=== PATIENT | female | born 1930 | race Caucasian/White ===

== ENCOUNTER 2017-03-03 15:14 | Inpatient (IN) | payer MEDICARE, OTHER ==
[~2017-03-03] VITALS: Ht 162.6 cm; Wt 75.9 kg
[2017-03-03 17:00] VITALS: BP 148/63
[2017-03-03] MEDS ORDERED: SIMETHICONE 80 MG TAB.CHEW PO PRN (18:30)
[2017-03-03] MEDS ORDERED: oxyCODONE/APAP 5/325 1 TAB TABLET PO PRN (18:30)
[2017-03-03] MEDS ORDERED: MAGNESIUM HYDROXIDE 2,400 MG/30 ML ORAL.SUSP. PO PRN (18:30)
[2017-03-03] MEDS ORDERED: LOPERAMIDE 2 MG CAPSULE PO PRN ×2 (18:30)
[2017-03-03] MEDS: IV NORMAL SALINE 1000ML BAG 1,000 ML IV SCH ×2 (18:30→21:07)
[2017-03-03 19:00] VITALS: BP 176/82
[2017-03-03] MEDS: GABAPENTIN 100 MG CAPSULE. PO SCH (21:07)
[2017-03-03] MEDS: OXYBUTYNIN CHLORIDE 5 MG TABLET PO SCH (21:07)
[2017-03-03] MEDS: MEMANTINE 5 MG TABLET. PO SCH (21:08)
[2017-03-03] MEDS: DICLOFENAC SODIUM 1% TOPICAL GEL 100GM TUBE. TP SCH (21:09)
[2017-03-03] MEDS: CLOBETASOL EMOLLIENT 0.05% TOPICAL CREAM 15GM TUBE. TP SCH (21:09)
[2017-03-03 23:00] VITALS: BP 158/78
[2017-03-04 03:00] VITALS: BP 131/74
[2017-03-04] MEDS ORDERED: oxyCODONE/APAP 5/325 1 TAB TABLET PO PRN (04:00)
[2017-03-04] MEDS: IV NORMAL SALINE 1000ML BAG 1,000 ML IV SCH ×2 (04:47→14:30)
[2017-03-04] MEDS: oxyCODONE/APAP 10/325 1 TAB TABLET PO PRN ×3 (04:48→23:11)
[2017-03-04 06:53] LABS: BASO # 0.1 x10^3/uL (0.0-0.2); BASO % 1 % (0-3); EOS % 6 % (0-3); HEMATOCRIT 33.4 % (36.0-47.0); HEMOGLOBIN 10.9 g/dL (12.0-15.5); LYMPH # 1.7 x10^3/uL (1.0-4.8); LYMPH % 26 % (24-48); MEAN CORPUSCULAR HEMOGLOBIN 30 pg (25-35); MEAN CORPUSCULAR HGB CONC 33 g/dL (31-37); MEAN CORPUSCULAR VOLUME 90 fL (79-100); MONO % 9 % (0-9); NEUT % 59 % (31-73); PLATELET COUNT 223 x10^3/uL (140-400); RED CELL DISTRIBUTION WIDTH 13.8 % (11.5-14.5); WHITE BLOOD COUNT 6.5 x10^3/uL (4.0-11.0)
[2017-03-04 07:00] VITALS: BP 145/68
[2017-03-04 07:05] LABS: ALBUMIN 2.8 g/dL (3.4-5.0); ALBUMIN/GLOBULIN RATIO 0.9 (1.0-1.7); CALCIUM 8.8 mg/dL (8.5-10.1); CREATININE 1.2 mg/dL (0.6-1.0); GFR 42.6; POTASSIUM 4.5 mmol/L (3.5-5.1); TOTAL BILIRUBIN 0.3 mg/dL (0.2-1.0)
[2017-03-04] MEDS: OXYBUTYNIN CHLORIDE 5 MG TABLET PO SCH ×2 (09:49→21:00)
[2017-03-04] MEDS: GABAPENTIN 100 MG CAPSULE. PO SCH ×2 (09:49→21:00)
[2017-03-04] MEDS: LISINOPRIL 10 MG TABLET PO SCH (09:50)
[2017-03-04] MEDS: TRIAMCINOLONE ACETONIDE 0.1% TOPICAL CREAM 15GM TUBE. TP SCH (09:51)
[2017-03-04] MEDS: CLOBETASOL EMOLLIENT 0.05% TOPICAL CREAM 15GM TUBE. TP SCH ×2 (09:51→21:00)
[2017-03-04] MEDS: MEMANTINE 5 MG TABLET. PO SCH ×2 (09:54→21:00)
[2017-03-04] MEDS: DICLOFENAC SODIUM 1% TOPICAL GEL 100GM TUBE. TP SCH ×2 (09:56→21:00)
[2017-03-04 10:49] VITALS: BP 140/66
--- NOTE | 2017-03-04 11:52 | RAD ---
Indication MRI clearance A single view of the chest was obtained and is compared to a study 07/08/2010. The heart and pulmonary vessels are unremarkable. There is no acute parenchymal infiltrate. 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 No battery device is seen in the chest IMPRESSION: No acute finding in the chest. No battery device is seen in the chest
--- NOTE | 2017-03-04 12:31 | RAD ---
Indication MRI clearance. A single view of the abdomen was obtained. Kyphoplasty changes are noted at L2. The abdominal gas pattern is normal. No battery device is seen. IMPRESSION: No battery device seen in the abdomen
--- NOTE | 2017-03-04 12:35 | PDOC1 ---
History and Physical Date of Admission Date of Admission 03/03/2017 Identification/Chief Complaint Chief Complaint right hip pain and difficulty walking Problems: (1) Abnormal radionuclide bone scan (2) Inability to walk (3) Pain, joint, hip, right Source Source: Caregiver, Patient History of Present Illness History of Present Illness A week ago the patient who is normally ambulatory developed pain in his right hip and was unable to walk She was evaluated at ER of [facility] and Xray of her right hio was unremarkable CT Scan of the lumbosacral spine showed compression fracture treated with vertebroplasty CT Scan of the pelvis and both hip jopints were unremarkable Bone scan showed abnormal uptake at the proximal end of the right femur and as recommend by the radiologist she was transferred to [facility] for an MRI and to consult the orthopedic surgeon Past Medical History Cardiovascular: HTN Pulmonary: No pertinent hx Renal/: Chronic renal insuff Social History Smoke: No ALCOHOL: none Current Problem List Problem List Right hip pain Difficulty walking Current Medications Current Medications Current Medications Medications (Trade) Dose Ordered Sig/Marilou Start Time Stop Time Status Last Admin Dose Admin Clobetasol Propionate (Temovate) 1 rosibel BID 03/03/17 21:00 03/04/17 09:51 1 ROSIBEL Diclofenac Sodium (Voltaren) 1 rosibel BID 03/03/17 21:00 03/04/17 09:56 1 ROSIBEL Gabapentin (Neurontin) 100 mg BID 03/03/17 21:00 03/04/17 09:49 100 MG Lidocaine (Lidoderm) 1 patch PRN DAILY PRN 03/03/17 18:30 Lisinopril (Prinivil) 10 mg DAILY 03/04/17 09:00 03/04/17 09:50 10 MG Loperamide HCl (Imodium) 4 mg PRN DAILY PRN 03/03/17 18:30 Magnesium Hydroxide (Milk Of Magnesia) 2,400 mg PRN Q72HRS PRN 03/03/17 18:30 Memantine (Namenda) 2.5 mg BID 03/03/17 21:00 03/04/17 09:54 2.5 MG Oxybutynin Chloride (Ditropan) 5 mg BID 03/03/17 21:00 03/04/17 09:49 5 MG Oxycodone/ Acetaminophen (Percocet 10/325) 1 tab PRN Q4HRS PRN 03/04/17 01:15 03/04/17 09:51 1 TAB Oxycodone/ Acetaminophen (Percocet 5/325) 1 tab PRN Q4HRS PRN 03/04/17 04:00 Simethicone (Gas-X) 80 mg PRN Q4HRS PRN 03/03/17 18:30 Sodium Chloride 1,000 ml @ 100 mls/hr Q10H 03/03/17 18:30 03/04/17 04:47 100 MLS/HR Triamcinolone Acetonide (Kenalog) 1 rosibel DAILY 03/04/17 09:00 03/04/17 09:51 1 ROSIBEL Allergies Allergies Allergies Coded Allergies Type Severity Reaction Last Updated Verified Penicillins Allergy Intermediate rash, itching, hives 03/03/17 Yes ROS Review of System CONSTITUTIONAL: No fever or chills EYES: No recent changes SKIN: No rash or itching CARDIOVASCULAR: No chest pain, syncope, palpitations, or edema RESPIRATORY: No SOB or cough GASTROINTESTINAL: No nausea, vomiting or abdominal pain NEUROLOGICAL: No headaches or weakness ENDOCRINE: No cold or heat intolerance GENITOURINARY: No urgency or frequency of urination MUSCULOSKELETAL: No back pain or joint pain LYMPHATICS: No enlarged lymph nodes PSYCHIATRIC: No anxiety or depression Physical Exam Physical Exam GEN.: No apparent distress. Alert and oriented. HEENT: Head is normocephalic, atraumatic NECK: Supple. LUNGS: Clear to auscultation. HEART: RRR, S1, S2 present. Peripheral pulses intact ABDOMEN: Soft, nontender. Positive bowel sounds. EXTREMITIES: Without any cyanosis. NEUROLOGIC: Normal speech, normal tone PSYCHIATRIC: Normal affect, normal mood. SKIN: No ulcerations Vitals Vitals Vital Signs Date Time Temp Pulse Resp B/P (MAP) Pulse Ox O2 Delivery O2 Flow Rate FiO2 03/04/17 10:50 92 Room Air 03/04/17 10:49 98.1 74 18 140/66 (90) 98.1 Labs Labs Laboratory Tests Test 03/04/17 06:10 White Blood Count 6.5 x10^3/uL (4.0-11.0) Red Blood Count 3.70 x10^6/uL (3.50-5.40) Hemoglobin 10.9 g/dL (12.0-15.5) Hematocrit 33.4 % (36.0-47.0) Mean Corpuscular Volume 90 fL (79-100) Mean Corpuscular Hemoglobin 30 pg (25-35) Mean Corpuscular Hemoglobin Concent 33 g/dL (31-37) Red Cell Distribution Width 13.8 % (11.5-14.5) Platelet Count 223 x10^3/uL (140-400) Neutrophils (%) (Auto) 59 % (31-73) Lymphocytes (%) (Auto) 26 % (24-48) Monocytes (%) (Auto) 9 % (0-9) Eosinophils (%) (Auto) 6 % (0-3) Basophils (%) (Auto) 1 % (0-3) Neutrophils # (Auto) 3.8 x10^3uL (1.8-7.7) Lymphocytes # (Auto) 1.7 x10^3/uL (1.0-4.8) Monocytes # (Auto) 0.6 x10^3/uL (0.0-1.1) Eosinophils # (Auto) 0.4 x10^3/uL (0.0-0.7) Basophils # (Auto) 0.1 x10^3/uL (0.0-0.2) Sodium Level 141 mmol/L (136-145) Potassium Level 4.5 mmol/L (3.5-5.1) Chloride Level 108 mmol/L (98-107) Carbon Dioxide Level 27 mmol/L (21-32) Anion Gap 6 (6-14) Blood Urea Nitrogen 14 mg/dL (7-20) Creatinine 1.2 mg/dL (0.6-1.0) Estimated GFR (Cockcroft-Gault) 42.6 BUN/Creatinine Ratio 12 (6-20) Glucose Level 87 mg/dL (70-99) Calcium Level 8.8 mg/dL (8.5-10.1) Total Bilirubin 0.3 mg/dL (0.2-1.0) Aspartate Amino Transf (AST/SGOT) 13 U/L (15-37) Alanine Aminotransferase (ALT/SGPT) 8 U/L (14-59) Alkaline Phosphatase 64 U/L (46-116) Total Protein 6.0 g/dL (6.4-8.2) Albumin 2.8 g/dL (3.4-5.0) Albumin/Globulin Ratio 0.9 (1.0-1.7) Laboratory Tests Test 03/04/17 06:10 White Blood Count 6.5 x10^3/uL (4.0-11.0) Red Blood Count 3.70 x10^6/uL (3.50-5.40) Hemoglobin 10.9 g/dL (12.0-15.5) Hematocrit 33.4 % (36.0-47.0) Mean Corpuscular Volume 90 fL (79-100) Mean Corpuscular Hemoglobin 30 pg (25-35) Mean Corpuscular Hemoglobin Concent 33 g/dL (31-37) Red Cell Distribution Width 13.8 % (11.5-14.5) Platelet Count 223 x10^3/uL (140-400) Neutrophils (%) (Auto) 59 % (31-73) Lymphocytes (%) (Auto) 26 % (24-48) Monocytes (%) (Auto) 9 % (0-9) Eosinophils (%) (Auto) 6 % (0-3) Basophils (%) (Auto) 1 % (0-3) Neutrophils # (Auto) 3.8 x10^3uL (1.8-7.7) Lymphocytes # (Auto) 1.7 x10^3/uL (1.0-4.8) Monocytes # (Auto) 0.6 x10^3/uL (0.0-1.1) Eosinophils # (Auto) 0.4 x10^3/uL (0.0-0.7) Basophils # (Auto) 0.1 x10^3/uL (0.0-0.2) Sodium Level 141 mmol/L (136-145) Potassium Level 4.5 mmol/L (3.5-5.1) Chloride Level 108 mmol/L (98-107) Carbon Dioxide Level 27 mmol/L (21-32) Anion Gap 6 (6-14) Blood Urea Nitrogen 14 mg/dL (7-20) Creatinine 1.2 mg/dL (0.6-1.0) Estimated GFR (Cockcroft-Gault) 42.6 BUN/Creatinine Ratio 12 (6-20) Glucose Level 87 mg/dL (70-99) Calcium Level 8.8 mg/dL (8.5-10.1) Total Bilirubin 0.3 mg/dL (0.2-1.0) Aspartate Amino Transf (AST/SGOT) 13 U/L (15-37) Alanine Aminotransferase (ALT/SGPT) 8 U/L (14-59) Alkaline Phosphatase 64 U/L (46-116) Total Protein 6.0 g/dL (6.4-8.2) Albumin 2.8 g/dL (3.4-5.0) Albumin/Globulin Ratio 0.9 (1.0-1.7) Images Images pending VTE Prophylaxis Ordered VTE Prophylaxis Devices: Yes VTE Pharmacological Prophylaxi: Yes (sequential compression devices) NORRIS ODOM MD Mar 04, 2017 12:35
--- NOTE | 2017-03-04 14:18 | RAD ---
EXAM: MRI right hip without contrast. HISTORY: Right hip pain after a fall. TECHNIQUE: MRI of the right hip was performed without intravenous contrast. COMPARISON: None. FINDINGS: There is nondisplaced intratrochanteric fracture of the right femur. There is mild surrounding soft tissue edema without associated hematoma. There is mild joint space narrowing at the right hip with tiny osteophytes along the right femoral head indicating mild osteoarthritis. There is degeneration of the superior acetabular labrum. There is a small right hip effusion. Greater trochanteric bursitis is mild. The iliopsoas tendon and hamstring origin are intact. There is mild presacral edema without a focal collection. IMPRESSION: 1. Nondisplaced intratrochanteric fracture of the right femur. 2. Mild right hip osteoarthritis. Small right hip effusion. These findings were called to Wendi by Arash Reyes on 03/04/2017 2:12 PM. Electronically signed by: Radha Reyes MD (03/04/2017 2:15 PM) [id number]
[2017-03-04 14:51] VITALS: BP 150/74
[2017-03-04 19:00] VITALS: BP 138/77
[2017-03-04 23:00] VITALS: BP 137/66
[2017-03-05] MEDS: IV NORMAL SALINE 1000ML BAG 1,000 ML IV SCH ×2 (02:44→10:30)
[2017-03-05 02:47] VITALS: BP 134/56
--- NOTE | 2017-03-05 05:27 | ACF ---
Admission Forms Criteria MUSCULOSKELETAL DISEASE GRG Clinical Indications for Admission to Inpatient Care (Place 'X' for any and all applicable criteria): Hospital admission is needed for appropriate care of the patient because of 1 or more of the following: [ ]I. Fracture, dislocation, or other musculoskeletal injury requiring inpatient care(medical) as indicated by 1 or more of the following(4)(5)(6)(7) [ ]a) Vertebral fracture requiring observation for instability or neurologic compromise (8) [ ]b) Compartment syndrome (proven or cannot be ruled out during observation level of care) (9) [ ]c) Limb-threatening injury [ ]d) Major injury requiring inpatient stabilization such as traction initiation or external fixation before internal fixation or closure of complex or open fracture [ ]e) Major injury requiring inpatient treatment after emergency or observation level care (as appropriate) [ ]f) Severe pain requiring acute inpatient management [ ]g) Injury with suspicion of abuse or neglect (eg., child, dependent elderly) [ ]II. Newly diagnosed or suspected bone, joint, or orthopedic device infection (e.g., osteomyelitis, septic arthritis) needing 1 or more of the following(1)(2)(3) [ ]a) IV antibiotics that cannot be initiated in other than inpatient setting (e.g., patient too unstable or home infusion not available) [ ]b) Device removal or replacement [ ]c) Bone or soft tissue debridement [ ]d) Joint drainage (drain placement or repetitive aspirations) [ ]III. Severe rheumatologic disease (e.g., systemic lupus erythematosus, rheumatoid arthritis) with complications or comorbidities (Also use Optimal Recovery Care Criteria or General Recovery Criteria as appropriate on the basis of predominant condition), including 1 or more of the following( 10)(11)(12)(13) [ ]a) Severe infection (e.g., [employer] infection, sepsis) (14) [ ]b) Respiratory complications, including 1 or more of the following : [ ]i) Pleural effusion with respiratory compromise [ ]ii) Pulmonary hypertension with congestive failure [ ]iii) Respiratory failure [ ]iv) Pulmonary hemorrhage (15) [ ]c) Hematologic disease, including 1 or more of the following: [ ]i) Coagulopathy with bleeding [ ]ii) Thrombosis with hypercoagulable state [ ]iii) Thrombotic thrombocytopenic purpura [ ]d) Cerebritis with seizures, psychosis, or other severe abnormalities [ ]e) Vertebral destruction with monitoring needed for cervical myelopathy& possible respiratory compromise [ ]f) Exacerbation that requires inpatient treatment (e.g., intravenous immunosuppression) (16) [ ]g) Acute renal failure [ ]h) Cerebritis with seizures, psychosis, Altered mental status, or other neurologic abnormalities [ ]i) Pericardial effusion with tamponade [ ]j) Vertebral destruction, with monitoring needed for cervical myelopathy and possible respiratory compromise [ ]IV. Severe vasculitis with complications or comorbidities (Also use Optimal Recovery Care Criteria General Recovery Criteria as appropriate on the basis of predominant condition), including 1 or more of the following(11)(12)(17)(18)(19)(20) [ ]a) Exacerbation that requires inpatient treatment (e.g., intravenous immunosuppression) (19)(21) [ ]b) Pulmonary hemorrhage (15) [ ]c) [employer] vasculitis with seizures, psychosis, Altered mental status that is severe or persistent, or other severe abnormalities (22) [ ]d) Cerebral infarction [ ]e) Gastrointestinal ischemia [ ]f) Gangrene or threatened amputation [ ]g) Renal failure (16) [ ]h) Other significant complications of vasculitis ( eg., tissue or organ ischemia, organ dysfunction ) [ ]V. Severe myopathy as indicated by 1 or more of the following (28)(29) [ ]a) New onset of airway compromise or inability to swallow [ ]b) Respiratory deterioration with observation needed for impending respiratory failure [ ]c) Exacerbation that requires inpatient treatment (e.g., intravenous immunosuppression) [ ]. Severe crystal gout (arthropathy) indicated by 1 or more of the following (23)(24) [ ]a) Severe pain requiring acute inpatient management [ ]b) Exacerbation that requires inpatient treatment (e.g., intravenous treatment) [ ]VII.Rhabdomyolysis and 1 or more of the following (25)(26)(27) [ ]a) Acute renal failure [ ]b) Need for intravenous hydration after emergency or observation level care (as appropriate) [ ]c) Inability to maintain oral hydration [ ]d) Change in mental status [ ]e) Electrolyte abnormality that remains after emergency or observation level care (as appropriate) [ ]VIII Post amputation complication, as indicated by ANY ONE of the following [ ]a) Infection [ ]b) Dehiscence [ ]c) Myodesis failure [X]IX. Severe pain requiring acute inpatient management due to musculoskeletal condition [ ]X. Musculoskeletal Disease and ALL of the following: [ ]a) Symptom or finding for which emergency and observation care have failed or are not considered appropriate (Use General Criteria: Observation Care as appropriate) [ ]b) Presence of ANY ONE of the following [ ]i) A General Admission Criteria [ ]ii) A Pediatric General Admission Criteria The original [facility] emoqu[facility] content created by [facility] has been revised. The portions of the content which have been revised are identified through the use of italic text or in bold, and [facility] has neither reviewed nor approved the modified material. All other unmodified content is copyright [facility]. Please see references footnoted in the original [facility] edition 2016 Admission Criteria Met?: Yes MILAN MAGUIRE Mar 05, 2017 05:27
[2017-03-05 07:00] VITALS: BP 145/64
[2017-03-05] MEDS: OXYBUTYNIN CHLORIDE 5 MG TABLET PO SCH ×2 (08:08→21:28)
[2017-03-05] MEDS: GABAPENTIN 100 MG CAPSULE. PO SCH ×2 (08:08→21:29)
[2017-03-05] MEDS: MEMANTINE 5 MG TABLET. PO SCH ×2 (08:08→21:29)
[2017-03-05] MEDS: CLOBETASOL EMOLLIENT 0.05% TOPICAL CREAM 15GM TUBE. TP SCH ×3 (08:09→21:29)
[2017-03-05] MEDS: LISINOPRIL 10 MG TABLET PO SCH (08:09)
[2017-03-05] MEDS: TRIAMCINOLONE ACETONIDE 0.1% TOPICAL CREAM 15GM TUBE. TP SCH (08:09)
[2017-03-05] MEDS: DICLOFENAC SODIUM 1% TOPICAL GEL 100GM TUBE. TP SCH ×2 (08:10→21:30)
[2017-03-05] MEDS: oxyCODONE/APAP 10/325 1 TAB TABLET PO PRN ×2 (08:11→16:45)
[2017-03-05 11:00] VITALS: BP 132/59
[2017-03-05 15:00] VITALS: BP 143/59
[2017-03-05] MEDS: LIDOCAINE (700MG/PATCH) PATCH. TD PRN (16:46)
[2017-03-05] MEDS ORDERED: METHYL SALICYLATE/MENTHOL TOPICAL OINTMENT 29GM TUBE. TP PRN (18:00)
[2017-03-05 19:16] VITALS: BP 120/69
[2017-03-05 23:12] VITALS: BP 145/70
[2017-03-06] VITALS (13 sets, daily range): BP systolic 95–152; BP diastolic 49–82
[2017-03-06] MEDS: oxyCODONE/APAP 10/325 1 TAB TABLET PO PRN (00:12)
--- NOTE | 2017-03-06 00:29 | PN ---
DATE: 03/05/2017 SUBJECTIVE: The patient is resting, slightly propped up, eating her lunch comfortably in no apparent distress. She has had an MRI done yesterday, which confirmed our suspicion that the patient has fractured her femur. In fact, the MRI showed a nondisplaced intertrochanteric fracture of the right femur and mild right hip osteoarthritis and small right hip effusion. She was evaluated by the orthopedic surgeon and initially there were plans for her to have surgery today; however, the surgery was postponed for tomorrow morning 7:00. OBJECTIVE: GENERAL: When I saw her this afternoon, she looked well and was clearly in no apparent respiratory distress, slightly pale. No jaundice, cyanosis or thyromegaly. No jugular venous distention. No lower limb edema. VITAL SIGNS: Her heart rate was 64, blood pressure 132/59, temperature was 98.7, respiratory rate was 18 and oxygen saturation was 95%. HEAD, EYES, EARS, NOSE AND THROAT: Showed normocephalic, atraumatic. NECK: Supple. HEART: Showed normal first and second sounds. No gallop, rub or murmur. CHEST: Clear to auscultation. No crepitation or rhonchi. ABDOMEN: Distended, soft, nontender. NEUROLOGIC: She was awake, alert, responding appropriately. Cranial nerves intact. She moves extremities without difficulty. She is mostly bed bound because of pain in her right hip joint. Her intake over the last 24 hours was 1700, no output was recorded. LABORATORY DATA: Her most recent lab work showed a serum sodium of 141, potassium 4.5, chloride 108, bicarbonate 27, anion gap of 6, BUN 14, creatinine 1.2 and her white cell count was 6500, hemoglobin 11, hematocrit 33, MCV 90 and platelet count 323,000. ASSESSMENT: Fall with a right intertrochanteric fracture, scheduled for surgical treatment tomorrow. My plan is to discontinue the IV fluid, repeat her labs tomorrow morning and continue obviously with pain management and deep venous thrombosis prophylaxis. NORRIS ODOM MD DR: RANDOLPH/beatriz JOB#: [id number] / [id number]
[2017-03-06 04:24] LABS: BASO # 0.1 x10^3/uL (0.0-0.2); BASO % 1 % (0-3); EOS % 8 % (0-3); HEMOGLOBIN 10.5 g/dL (12.0-15.5); LYMPH # 1.9 x10^3/uL (1.0-4.8); LYMPH % 32 % (24-48); MEAN CORPUSCULAR HEMOGLOBIN 30 pg (25-35); MEAN CORPUSCULAR HGB CONC 33 g/dL (31-37); MEAN CORPUSCULAR VOLUME 91 fL (79-100); MONO % 8 % (0-9); NEUT % 51 % (31-73); PLATELET COUNT 221 x10^3/uL (140-400); RED BLOOD COUNT 3.52 x10^6/uL (3.50-5.40); RED CELL DISTRIBUTION WIDTH 14.2 % (11.5-14.5)
[2017-03-06 04:50] LABS: ALBUMIN 2.7 g/dL (3.4-5.0); ALBUMIN/GLOBULIN RATIO 0.8 (1.0-1.7); CALCIUM 8.7 mg/dL (8.5-10.1); CREATININE 1.3 mg/dL (0.6-1.0); GFR 38.8; POTASSIUM 4.2 mmol/L (3.5-5.1); TOTAL BILIRUBIN 0.2 mg/dL (0.2-1.0); TOTAL PROTEIN 5.9 g/dL (6.4-8.2)
[2017-03-06] MEDS ORDERED: VANCOMYCIN 1GM IVPB FOR OMNI 250 ML IV PRN (06:00)
[2017-03-06] MEDS ORDERED: MORPHINE SULFATE 2 MG/ML DISP.SYRIN. IV PRN ×2 (07:00→08:45)
[2017-03-06] MEDS ORDERED: IV RINGERS,LACTATED 1000ML 1,000 ML IV SCH (07:00)
[2017-03-06] MEDS ORDERED: HYDROmorphone 2 MG/ML VIAL IV PRN (07:00)
[2017-03-06] MEDS ORDERED: PROCHLORPERAZINE 10 MG/2 ML VIAL. IV PRN (07:00)
[2017-03-06] MEDS ORDERED: fentaNYL PF VIAL 100 MCG/2 ML VIAL IV PRN (07:00)
[2017-03-06] MEDS ORDERED: LIDOCAINE 1% 1 ML SYRINGE. ID PRN (07:00)
[2017-03-06] MEDS ORDERED: ONDANSETRON PF 4 MG/2 ML VIAL. IV PRN ×2 (07:00→08:45)
[2017-03-06] MEDS ORDERED: LIDOCAINE 2% PF Vial for OR 5 ML VIAL. ONE (07:15)
[2017-03-06] MEDS ORDERED: FAMOTIDINE 20 MG/2 ML VIAL ONE (07:15)
[2017-03-06] MEDS ORDERED: ONDANSETRON PF 4 MG/2 ML VIAL. ONE (07:15)
[2017-03-06] MEDS ORDERED: PROPOFOL 20 ML IV ONE (07:15)
[2017-03-06] MEDS ORDERED: fentaNYL PF VIAL 100 MCG/2 ML VIAL ONE (07:16)
[2017-03-06] MEDS ORDERED: ROCURONIUM 50 MG/5 ML VIAL. ONE (07:16)
[2017-03-06] MEDS ORDERED: MINERAL OIL/PETROLATUM,WHITE OPHTH OINT 3.5GM TUBE. ONE (07:39)
[2017-03-06] MEDS ORDERED: ePHEDrine PF IN SALINE 50 MG/5 ML DISP.SYRIN IV ONE (07:41)
[2017-03-06] MEDS ORDERED: NEOSTIGMINE METHYLSULFATE 5 MG/5 ML SYRINGE. ONE (08:07)
[2017-03-06] MEDS ORDERED: GLYCOPYRROLATE 1 MG/5 ML VIAL. ONE (08:07)
[2017-03-06] MEDS ORDERED: LABETALOL 20 MG/4 ML DISP.SYRIN. ONE (08:11)
[2017-03-06] MEDS ORDERED: DESFLURANE 31 TO 60 MINUTES IH ONE (08:20)
[2017-03-06] MEDS ORDERED: MORPHINE SULFATE 4 MG/ML DISP.SYRIN. IV PRN (08:45)
[2017-03-06] MEDS ORDERED: DEXTROSE 50% 25 GM / 50ML DISP.SYRIN. IV PRN (08:45)
[2017-03-06] MEDS ORDERED: POLYETHYLENE GLYCOL 3350 17 GM PACKET. PO PRN (08:45)
[2017-03-06] MEDS ORDERED: oxyCODONE IR 5 MG TABLET PO PRN (08:45)
--- NOTE | 2017-03-06 08:49 | PDOC ---
BRIEF OPERATIVE NOTE Date: Mar 06, 2017 Pre-Op Diagnosis Right intertrochanteric hip fracture Post-Op Diagnosis Same Procedure Performed Operative stabilization right intertrochanteric hip fracture with intramedullary nail Surgeon Ted Anesthesia Type: General Blood Loss 100 mL Findings Above Complications None OPerative Note Operative indications patient is an 86-year-old female who did have a recent fall but did not seem to develop hip pain until a few days later but is now having significant pain with any attempted weightbearing movement of the hip on transfers and MRI showed a nondisplaced fracture of the intertrochanteric region on the right hip. I had gone over with the family that if she can reasonably keep weight off of the hip with transfers and ambulation for example with a walker and could reliably protect the hip we could probably treat this nonoperative in nature. If she did inadvertently continue to bear weight on it there is a risk of displacement. Another option would be operative fixation to stabilize the hip and allow her full weightbearing with really no restrictions. Family talked it over with her mother and they indicate that she is stubborn and impulsive and may be likely to inadvertently bear weight on the area and they were concerned for her ongoing risk of falls as well. We covered the risks of possible medical or other anesthetic complications infection among others associated with operative treatment and they agree to proceed with operative evaluation treatment. Operative text patient was identified procedure verified after adequate amounts of general endotracheal anesthesia were administered she was placed on the Lona fracture table right lower extremity placed in traction well leg ghosh was placed all bony prominences were well-padded and the right hip was prepped and draped in standard sterile fashion. After informed consent was obtained patient procedure again identified and verified, an incision was made just proximal to the greater trochanteric starting entry point for the nail fascia was incised longitudinally and an awl was used to obtain entry through the tip of the greater trochanter along guidewire was passed, entry drill was advanced reaming carried out to size 13 and a size 11.5 x 130 short InterTAN nail was advanced, guidewire was advanced up the center of the femoral head under multiple fluoroscopic views, and a 110 mm lag screw was placed under fluoroscopic guidance and a compression screw was placed for additional fatigue resistance but not compressed. Distal locking screw was not necessary. As she was rotationally stable. Thorough irrigation carried out normal saline solution fascia was closed with #1 Vicryl suture subcutaneous closure with buried 2-0 Vicryl skin closure with josefa sterile dressings were applied patient was returned to recovery room in stable condition having tolerated the procedure well VANESA BAEZA MD Mar 06, 2017 08:49
[2017-03-06] MEDS: fentaNYL PF VIAL 100 MCG/2 ML VIAL IV PRN ×4 (08:58→14:18)
[2017-03-06] MEDS: CLOBETASOL EMOLLIENT 0.05% TOPICAL CREAM 15GM TUBE. TP SCH ×2 (09:00→20:55)
[2017-03-06] MEDS: DICLOFENAC SODIUM 1% TOPICAL GEL 100GM TUBE. TP SCH ×2 (09:00→20:55)
[2017-03-06] MEDS: TRIAMCINOLONE ACETONIDE 0.1% TOPICAL CREAM 15GM TUBE. TP SCH (09:00)
[2017-03-06] MEDS: SENNOSIDES/DOCUSATE 8.6/50MG TABLET. PO SCH (09:00)
[2017-03-06] MEDS: MEMANTINE 5 MG TABLET. PO SCH ×2 (14:17→20:55)
[2017-03-06] MEDS: GABAPENTIN 100 MG CAPSULE. PO SCH ×2 (14:17→20:54)
[2017-03-06] MEDS: OXYBUTYNIN CHLORIDE 5 MG TABLET PO SCH ×2 (14:20→20:55)
[2017-03-06] MEDS: LISINOPRIL 10 MG TABLET PO SCH (14:41)
[2017-03-06] MEDS ORDERED: WARFARIN 7.5 MG TABLET. PO ONE (16:00)
[2017-03-07] VITALS (15 sets, daily range): BP systolic 91–143; BP diastolic 40–67
--- NOTE | 2017-03-07 01:27 | CONS ---
DATE OF CONSULTATION: 03/04/2017 ORTOHPEDIC CONSULTATION REQUESTING PHYSICIAN: Dr. Jeramie Tyson. REASON FOR CONSULTATION: Right hip pain. HISTORY OF PRESENT ILLNESS: The patient is an 86-year-old female who was ambulating normally and living in senior assisted living and a week ago began developing relatively atraumatic onset right hip pain. There was some question of a fall, but that seems to be more remote on clarification with the patient and her family. She has had progressive right hip pain, however, and inability to walk. She was initially seen at [facility] Emergency Department. X-ray of the right hip was unremarkable at that time. She underwent vertebroplasty of the compression fracture, but again a bone scan showed some abnormal uptake proximally in the right femur and as a result of this and her ongoing pain, [facility] consult and MRI. PAST MEDICAL HISTORY: Significant for hypertension, chronic renal insufficiency and some mild dementia. PAST SURGICAL HISTORY: Vertebroplasty. MEDICATIONS: List is reviewed. ALLERGIES: SHE HAS ALLERGIES TO PENICILLINS, WHICH GIVES HER RASH AND HIVES. SOCIAL HISTORY: Denies smoking, alcohol or drug use. She is assisted living resident, two of her daughters are present for the evaluation today and are providing some of her medical history as well. REVIEW OF SYSTEMS: Really no significant recent trauma. Denies any weakness, fever, chills, chest pain, shortness of breath, focal weakness, numbness, tingling. No new neck or back pain. PHYSICAL EXAMINATION: GENERAL: This is a pleasant, cooperative 86-year-old female, alert and oriented, in no acute distress. HEENT: Atraumatic, normocephalic. NECK: Supple. EXTREMITIES: She has good motion of both shoulders, elbows and wrists bilaterally. Examination of lower extremities reveals tenderness of the right hip on any extremes of range of motion as well as with weightbearing through an extended extremity. Tenderness is in the upper thigh area, radiating down the thigh to about the knee somewhat. Normal examination of the contralateral left hip, knee and bilateral ankles. She has intact motor function, distal pulses, sensation, reflexes, skin in both upper and lower extremities throughout. IMAGING: MRI shows a nondisplaced intertrochanteric hip fracture on the right and other x-rays show a previous vertebroplasty. IMPRESSION: 1. Right nondisplaced intertrochanteric hip fracture. 2. History of remote fall. 3. Right hip pain, inability to walk. TREATMENT PLAN: I had had an extensive discussion with the patient and her daughters about treatment options. I told them that this certainly can heal if we were to keep her restricted activity and very limited weightbearing essentially taking all the weight with a walker instead of her right leg. If she does inadvertently bear too much weight or put stress on this area there may be a chance of displacement of the fracture. We talked about the possibility of surgical stabilization of the fracture to allow really unrestricted activity with her. Her daughters are worried that she is somewhat stubborn and a bit impulsive in terms of getting up and moving and may not be controlled very well with restricted activity and a walker as we had described. Therefore, they would like to proceed with surgical stabilization of the hip pending further medical evaluation and treatment. All their questions were answered at this time. VANESA BAEZA MD DR: LIMA/beatriz JOB#: [id number] / [id number] JERAMIE Brumfield MD
--- NOTE | 2017-03-07 02:19 | PN ---
DATE: 03/06/2017 SUBJECTIVE: The patient is resting slightly propped up in bed, in no apparent distress. On questioning her, she stated she is in severe pain. She just came from the [facility] after she underwent operative stabilization of right intertrochanteric hip fracture with intramedullary nailing. PHYSICAL EXAMINATION: GENERAL: When I examined her, she was slightly pale, no jaundice, cyanosis, or thyromegaly. No jugular venous distention. No limb edema. VITAL SIGNS: Her heart rate was 63, blood pressure was 131/54, temperature was 95.7, respiratory rate was 16, and oxygen saturation was 98% on 2 liters of oxygen by nasal cannula. HEAD, EYES, EARS, NOSE AND THROAT: Showed normocephalic and atraumatic. NECK: Supple. HEART: Showed normal first and second heart sounds with no gallop, rub or murmur. CHEST: Clear to auscultation. No crepitation or rhonchi. ABDOMEN: Distended, soft, nontender. No guarding or rigidity. No organomegaly. Hernial orifices intact. Bowel sounds normal. NEUROLOGIC: She was awake, alert, responding appropriately. Cranial nerves intact. She moves upper extremities without difficulty. She continues to have pain in her right hip joint. Her intake was 600, output was 300. LABORATORY DATA: This morning showed a serum sodium 142, potassium 4.2, chloride 109, bicarbonate was 27, anion gap of 6, BUN 13, creatinine 1.3, estimated GFR was 38 mL per minute. Her glucose was 88, calcium was 8.7. Total bilirubin, AST, ALT, alkaline phosphatase were normal. Total protein was 5.9, albumin 2.7. Her white cell count was 6000, hemoglobin 10.5, hematocrit 32, MCV 91, and platelet count of 121,000. ASSESSMENT: Fall with right intertrochanteric hip fracture status post operative stabilization of the right intertrochanteric hip fracture with intramedullary nailing. PLAN: To continue with pain management. Continue with DVT prophylaxis. She is currently on hydrocodone. She is also on fentanyl 25 mcg every hour. I will repeat all her lab work tomorrow and will obviously start the process of physical and occupational therapy. NORRIS ODOM MD DR: RANDOLPH/beatriz JOB#: [id number] / [id number]
[2017-03-07 05:54] LABS: BASO % 0 % (0-3); EOS % 1 % (0-3); LYMPH # 0.9 x10^3/uL (1.0-4.8); LYMPH % 11 % (24-48); MEAN CORPUSCULAR HEMOGLOBIN 30 pg (25-35); MEAN CORPUSCULAR HGB CONC 33 g/dL (31-37); MEAN CORPUSCULAR VOLUME 91 fL (79-100); MONO % 5 % (0-9); NEUT % 84 % (31-73); PLATELET COUNT 165 x10^3/uL (140-400); RED CELL DISTRIBUTION WIDTH 14.1 % (11.5-14.5); WHITE BLOOD COUNT 8.3 x10^3/uL (4.0-11.0)
[2017-03-07] MEDS ORDERED: MAGNESIUM HYDROXIDE 2,400 MG/30 ML ORAL.SUSP. PO PRN (06:00)
[2017-03-07 06:09] LABS: CALCIUM 7.8 mg/dL (8.5-10.1); CREATININE 1.2 mg/dL (0.6-1.0); GFR 42.6; POTASSIUM 4.5 mmol/L (3.5-5.1)
[2017-03-07 06:27] LABS: HEMOGLOBIN 6.9 g/dL (12.0-15.5)
[2017-03-07] MEDS: GABAPENTIN 100 MG CAPSULE. PO SCH ×2 (09:19→21:22)
[2017-03-07] MEDS: OXYBUTYNIN CHLORIDE 5 MG TABLET PO SCH ×2 (09:19→21:22)
[2017-03-07] MEDS: SENNOSIDES/DOCUSATE 8.6/50MG TABLET. PO SCH (09:19)
[2017-03-07] MEDS: MEMANTINE 5 MG TABLET. PO SCH ×2 (09:20→21:22)
[2017-03-07] MEDS: LISINOPRIL 10 MG TABLET PO SCH (09:20)
[2017-03-07] MEDS: HYDROcodone/APAP 7.5/325MG 1 TAB TABLET PO PRN ×2 (14:17→21:22)
[2017-03-07 14:49] LABS: BILIRUBIN,URINE NEGATIVE (NEG); GLUCOSE,URINE NEGATIVE (NEG); NITRITE,URINE NEGATIVE (NEG); PH,URINE 5.5; PROTEIN,URINE NEGATIVE (NEG-TRACE); UROBILINOGEN,URINE 0.2 mg/dL (0.2 mg/dL)
[2017-03-07 15:27] LABS: INR 1.9 (0.8-1.1); PROTHROMBIN TIME PATIENT 20.7 SEC (11.7-14.0)
[2017-03-07 15:28] LABS: BACTERIA,URINE 0 /HPF (0-FEW); RBC,URINE 0 /HPF (0-2); SQUAMOUS EPITHELIAL CELL,UR FEW /LPF
[2017-03-07] MEDS ORDERED: BISACODYL 10 MG SUPP.RECT. PR PRN (16:00)
[2017-03-07] MEDS: TRIAMCINOLONE ACETONIDE 0.1% TOPICAL CREAM 15GM TUBE. TP SCH (16:50)
[2017-03-07] MEDS: DICLOFENAC SODIUM 1% TOPICAL GEL 100GM TUBE. TP SCH ×2 (16:51→21:23)
[2017-03-07] MEDS: CLOBETASOL EMOLLIENT 0.05% TOPICAL CREAM 15GM TUBE. TP SCH ×2 (16:51→21:22)
[2017-03-07] MEDS ORDERED: WARFARIN 2 MG TABLET. PO ONE (17:00)
--- NOTE | 2017-03-07 17:53 | PDOC ---
Infectious Disease Note Vital Sign Vital Signs Vital Signs Date Time Temp Pulse Resp B/P (MAP) Pulse Ox O2 Delivery O2 Flow Rate FiO2 03/07/17 17:00 87 16 106/45 (65) 94 Nasal Cannula 1.0 03/07/17 16:05 99.1 99.1 Labs Lab Laboratory Tests Test 03/07/17 05:12 03/07/17 14:30 03/07/17 14:45 White Blood Count 8.3 x10^3/uL (4.0-11.0) Red Blood Count 2.30 x10^6/uL (3.50-5.40) Hemoglobin 6.9 g/dL (12.0-15.5) Hematocrit 21.0 % (36.0-47.0) Mean Corpuscular Volume 91 fL (79-100) Mean Corpuscular Hemoglobin 30 pg (25-35) Mean Corpuscular Hemoglobin Concent 33 g/dL (31-37) Red Cell Distribution Width 14.1 % (11.5-14.5) Platelet Count 165 x10^3/uL (140-400) Neutrophils (%) (Auto) 84 % (31-73) Lymphocytes (%) (Auto) 11 % (24-48) Monocytes (%) (Auto) 5 % (0-9) Eosinophils (%) (Auto) 1 % (0-3) Basophils (%) (Auto) 0 % (0-3) Neutrophils # (Auto) 6.9 x10^3uL (1.8-7.7) Lymphocytes # (Auto) 0.9 x10^3/uL (1.0-4.8) Monocytes # (Auto) 0.4 x10^3/uL (0.0-1.1) Eosinophils # (Auto) 0.0 x10^3/uL (0.0-0.7) Basophils # (Auto) 0.0 x10^3/uL (0.0-0.2) Sodium Level 142 mmol/L (136-145) Potassium Level 4.5 mmol/L (3.5-5.1) Chloride Level 109 mmol/L (98-107) Carbon Dioxide Level 26 mmol/L (21-32) Anion Gap 7 (6-14) Blood Urea Nitrogen 15 mg/dL (7-20) Creatinine 1.2 mg/dL (0.6-1.0) Estimated GFR (Cockcroft-Gault) 42.6 Glucose Level 156 mg/dL (70-99) Calcium Level 7.8 mg/dL (8.5-10.1) Urine Collection Type Unknown Urine Color Yellow Urine Clarity Clear Urine pH 5.5 Urine Specific [place] 1.020 Urine Protein Negative mg/dL (NEG-TRACE) Urine Glucose (UA) Negative mg/dL (NEG) Urine Ketones (Stick) Negative mg/dL (NEG) Urine Blood Negative (NEG) Urine Nitrite Negative (NEG) Urine Bilirubin Negative (NEG) Urine Urobilinogen Dipstick 0.2 mg/dL (0.2 mg/dL) Urine Leukocyte Esterase Moderate (NEG) Urine RBC 0 /HPF (0-2) Urine WBC 5-10 /HPF (0-4) Urine Squamous Epithelial Cells Few /LPF Urine Transitional Epithelial Cells Few /LPF Urine Bacteria 0 /HPF (0-FEW) Urine Hyaline Casts Moderate /HPF Urine Mucus Marked /LPF Prothrombin Time 20.7 SEC (11.7-14.0) Prothromb Time International Ratio 1.9 (0.8-1.1) Objective Assessment Fever, likely reactive s/p intramedullary nailing of right femur fracture, 03/06 s/p fall PCN allergy-hives Anemia Osteoporosis Plan Plan of Care Hold abx If develops another fever would repeat BC and dose vancomycin per Dr. Miller f/u cultures Supportive care Thank you Patient seen and examined. Chart reviewed. Case discussed with TEST DEVELOPER. Agree with above plan. BROOKS CARMEN APRN Mar 07, 2017 17:53 FORD MILLER MD Mar 07, 2017 17:56
[2017-03-08] MEDS: HYDROcodone/APAP 7.5/325MG 1 TAB TABLET PO PRN ×4 (03:08→23:57)
[2017-03-08 03:19] VITALS: BP 151/68
--- NOTE | 2017-03-08 03:53 | CONS ---
DATE OF CONSULTATION: 03/07/2017 REFERRING PHYSICIAN: Dr. Tyson. REASON FOR CONSULTATION: Fever. HISTORY OF PRESENT ILLNESS: This patient is an 86-year-old female with a history of osteoporosis, who initially presented to [facility] in [place] on 03/02/2017 for difficulty walking on her right leg. She had fallen about 5 days earlier. X-ray films did not show any acute changes. However, a bone scan showed abnormal uptake within the right proximal femur, though she was transferred to [facility] for further evaluation. An MRI revealed a nondisplaced intertrochanteric fracture of the right femur; mild right hip osteoarthritis and effusion. She was taken to the OR on the and underwent an operative stabilization with intramedullary nailing by Dr. Jean. Earlier of this morning, she spiked a fever ranging from 100.6-101.5. White blood cell count remains within normal limits. Urinalysis is unremarkable for infection. Blood cultures are pending. The patient is sitting in the chair, eating her dinner. She verbalized discomfort at the moment. Denies chills or sweats. Denies headache, cough or shortness of air. Denies nausea, vomiting or diarrhea. She has a Theodore in place that is scheduled to be removed tomorrow. She is anemic and is getting a blood transfusion. PAST MEDICAL HISTORY: Hypertension, chronic kidney disease, osteoporosis, osteoarthritis, urinary incontinence and dementia. PAST SURGICAL HISTORY: Operative stabilization with intramedullary nailing of right femur fracture on 03/06/2017, right wrist orthopedic surgery and vertebroplasty. ALLERGIES: PENICILLIN CAUSING A RASH AND HIVES. SOCIAL HISTORY: The patient has been living in an assisted living facility for the past year. Nonsmoker. MEDICATIONS: Reviewed on the OCT. She is currently not on any antibiotics. REVIEW OF SYSTEMS: Per HPI, otherwise all other review of systems are negative. PHYSICAL EXAMINATION: GENERAL: A pleasant female, sitting in the chair, in no apparent distress. VITAL SIGNS: Temperature is 99.1, T-max 101.5, blood pressure 106/45, heart rate 87, respiratory rate 16, pulse oximetry is 94% on 1 liter nasal cannula. Weight is 167 pounds. HEENT: Pupils equally round, reactive. Normal conjunctivae. Oral mucosa is pink and moist. LUNGS: Clear to auscultation. HEART: Normal S1 and S2. ABDOMEN: Bowel sounds are present. FORD WEINER MD DR: Herberth JOB#: [id number] / [id number]
--- NOTE | 2017-03-08 03:54 | CONS ---
DATE OF CONSULTATION: ADDENDUM TO A CUT-OFF DICTATION HEART: Normal S1 and S2. ABDOMEN: Bowel sounds are present, soft, and nontender. GENITOURINARY: She has a Theodore in place. EXTREMITIES: No gross edema or cyanosis. Right lateral hip incision is well-approximated with josefa intact. No redness or drainage noted. SKIN: Without rash. Warm to touch. NEUROLOGIC: Alert, answers simple questions appropriately. A poor historian. LABORATORY DATA: Today's WBC is 8.3, hemoglobin 6.9, hematocrit 21.0, and platelet count 165,000. Electrolytes are unremarkable. Creatinine 1.2, glucose 156, total bilirubin 0.2, AST 14, and ALT 9. Albumin 2.7. Urinalysis is unremarkable for infection. Urine and blood cultures are pending. IMAGING: Per HPI. IMPRESSION: 1. Fever, likely reactive. 2. Status post intramedullary nailing of right femur fracture, 03/06/2017. 3. Status post fall. 4. PENICILLIN ALLERGY CAUSING HIVES. 5. Acute anemia. PLAN: Hold antibiotics for now. If the patient develops another fever, I would repeat blood cultures and dose with vancomycin. Supportive care. Thank you, Dr. Tyson for asking us to participate in this patient's care. Should you have further questions or concerns, please call. The patient is seen and examined and plan of care implemented by Dr. Ford Miller. FORD MILLER MD DR: NISHA/beatriz JOB#: [id number] / [id number]
--- NOTE | 2017-03-08 04:23 | PN ---
DATE: 03/07/2017 SUBJECTIVE: The patient is sitting in her chair, eating her lunch comfortably. She continued to complain of pain in her right thigh. She spiked a temperature this morning up to 101.5 and her lab work showed that she has dropped her hemoglobin and hematocrit down to 6.9 and 21 from 10.5 and 32. We did panculture her. PHYSICAL EXAMINATION: GENERAL: When I examined her this afternoon, she looked well and was clearly in no apparent respiratory distress, pale, but no jaundice, cyanosis or thyromegaly. No jugular venous distension. No limb edema. VITAL SIGNS: Her heart rate was 103, blood pressure was 129/51, temperature was 98.1, respiratory rate was 18 and oxygen saturation was 97% on 2 liters of oxygen. HEAD, EYES, EARS, NOSE AND THROAT: Showed normocephalic, atraumatic. NECK: Supple. HEART: Showed normal first and second heart sounds with no gallop, rub or murmur. CHEST: Clear to auscultation. No crepitation or rhonchi. ABDOMEN: Distended, soft. NEUROLOGIC: She is awake, alert. All her cranial nerves intact. She moves her extremities without difficulty. Her intake over the last 24 hours was 1380, output 750. LABORATORY DATA: As of this morning showed a white cell count of 8300, hemoglobin 6.9, hematocrit 21, MCV 91 and platelet count of 165,000 with normal manual differential. Serum sodium was 142, potassium 4.5, chloride 109, bicarbonate 26, anion gap 7, BUN 15, creatinine 1.2, estimated GFR was 42.6 mL per minute. Her glucose was 156, calcium was 7.8. ASSESSMENT: 1. Fall with right intertrochanteric hip fracture, status post operative stabilization of the right intertrochanteric hip fracture with intramedullary nailing. 2. Fever with temperature up to 101.5. 3. Acute blood loss anemia with a hemoglobin and hematocrit that dropped down to 6.9 and 21. Plan is to type and cross and transfuse 2 units of blood. I have sent blood and urine for culture and sensitivity. 4. Hypertension. The patient's systolic pressure dropped last night to around 90 and was given a bolus of normal saline, continuous, 100 mL. Her blood pressure this morning is much better, is well within normal range at 129/51. PLAN: To monitor her H and H and transfuse as needed. Continue to await the results of culture and sensitivity. I have already consulted Infectious Disease to decide whether we need to start her on antibiotics. We will monitor her H and H and transfuse as needed. Start the process of physical and occupational therapy. NORRIS ODOM MD DR: RANDOLPH/beatriz JOB#: [id number] / [id number]
[2017-03-08 05:58] LABS: HEMATOCRIT 27.1 % (36.0-47.0); HEMOGLOBIN 9.1 g/dL (12.0-15.5); RED BLOOD COUNT 3.01 x10^6/uL (3.50-5.40)
[2017-03-08 06:17] LABS: ALBUMIN 2.3 g/dL (3.4-5.0); ALBUMIN/GLOBULIN RATIO 0.8 (1.0-1.7); ALK PHOS 74 U/L (46-116); ALT (SGPT) < 6 U/L (14-59); ANION GAP 7 (6-14); AST (SGOT) 16 U/L (15-37); BLOOD UREA NITROGEN 11 mg/dL (7-20); BUN/CREATININE RATIO 10 (6-20); CALCIUM 8.2 mg/dL (8.5-10.1); CARBON DIOXIDE 26 mmol/L (21-32); CHLORIDE 110 mmol/L (98-107); CREATININE 1.1 mg/dL (0.6-1.0); GFR 47.1; GLUCOSE 109 mg/dL (70-99); POTASSIUM 4.2 mmol/L (3.5-5.1); SODIUM 143 mmol/L (136-145); TOTAL BILIRUBIN 0.3 mg/dL (0.2-1.0); TOTAL PROTEIN 5.2 g/dL (6.4-8.2)
[2017-03-08 07:00] VITALS: BP 138/62
[2017-03-08] MEDS: GABAPENTIN 100 MG CAPSULE. PO SCH ×2 (09:33→20:30)
[2017-03-08] MEDS: SENNOSIDES/DOCUSATE 8.6/50MG TABLET. PO SCH (09:33)
[2017-03-08] MEDS: OXYBUTYNIN CHLORIDE 5 MG TABLET PO SCH ×2 (09:33→20:30)
[2017-03-08] MEDS: LISINOPRIL 10 MG TABLET PO SCH (09:33)
[2017-03-08] MEDS: MEMANTINE 5 MG TABLET. PO SCH ×2 (09:34→20:29)
[2017-03-08] MEDS: CLOBETASOL EMOLLIENT 0.05% TOPICAL CREAM 15GM TUBE. TP SCH ×2 (09:39→20:34)
[2017-03-08] MEDS: TRIAMCINOLONE ACETONIDE 0.1% TOPICAL CREAM 15GM TUBE. TP SCH (09:39)
[2017-03-08] MEDS: DICLOFENAC SODIUM 1% TOPICAL GEL 100GM TUBE. TP SCH ×2 (09:40→20:29)
[2017-03-08 11:00] VITALS: BP 130/70
[2017-03-08] MEDS: LIDOCAINE (700MG/PATCH) PATCH. TD PRN (11:07)
[2017-03-08 13:30] LABS: INR 2.1 (0.8-1.1); PROTHROMBIN TIME PATIENT 22.2 SEC (11.7-14.0)
--- NOTE | 2017-03-08 13:50 | PDOC ---
Infectious Disease Note Subjective Subjective Comfortable Finished lunch, couldn't eat it all No fever last 24 hours ROS ROS GEN: Denies chills, sweats RESP: Denies shortness of air, cough GI: Denies n/v/d Vital Sign Vital Signs Vital Signs Date Time Temp Pulse Resp B/P (MAP) Pulse Ox O2 Delivery O2 Flow Rate FiO2 03/08/17 11:00 99.0 95 17 130/70 (90) 88 Room Air 99.0 03/08/17 10:32 1.0 Physical Exam PHYSICAL EXAM GENERAL: Sitting in the chair, relaxed appearance LUNGS: Clear to auscultation. HEART: Normal S1 and S2. ABDOMEN: Bowel sounds are present. : Theodore EXT: No gross edema or cyanosis. Right lateral thigh incision minimal bleeding. SKIN: without rash SETTER MACHINE: Alert, coop Labs Lab Laboratory Tests Test 03/07/17 14:30 03/07/17 14:45 03/08/17 05:40 03/08/17 13:05 Urine Collection Type Unknown Urine Color Yellow Urine Clarity Clear Urine pH 5.5 Urine Specific [place] 1.020 Urine Protein Negative mg/dL (NEG-TRACE) Urine Glucose (UA) Negative mg/dL (NEG) Urine Ketones (Stick) Negative mg/dL (NEG) Urine Blood Negative (NEG) Urine Nitrite Negative (NEG) Urine Bilirubin Negative (NEG) Urine Urobilinogen Dipstick 0.2 mg/dL (0.2 mg/dL) Urine Leukocyte Esterase Moderate (NEG) Urine RBC 0 /HPF (0-2) Urine WBC 5-10 /HPF (0-4) Urine Squamous Epithelial Cells Few /LPF Urine Transitional Epithelial Cells Few /LPF Urine Bacteria 0 /HPF (0-FEW) Urine Hyaline Casts Moderate /HPF Urine Mucus Marked /LPF Prothrombin Time 20.7 SEC (11.7-14.0) 22.2 SEC (11.7-14.0) Prothromb Time International Ratio 1.9 (0.8-1.1) 2.1 (0.8-1.1) White Blood Count 9.0 x10^3/uL (4.0-11.0) Red Blood Count 3.01 x10^6/uL (3.50-5.40) Hemoglobin 9.1 g/dL (12.0-15.5) Hematocrit 27.1 % (36.0-47.0) Mean Corpuscular Volume 90 fL (79-100) Mean Corpuscular Hemoglobin 30 pg (25-35) Mean Corpuscular Hemoglobin Concent 34 g/dL (31-37) Red Cell Distribution Width 14.0 % (11.5-14.5) Platelet Count 150 x10^3/uL (140-400) Sodium Level 143 mmol/L (136-145) Potassium Level 4.2 mmol/L (3.5-5.1) Chloride Level 110 mmol/L (98-107) Carbon Dioxide Level 26 mmol/L (21-32) Anion Gap 7 (6-14) Blood Urea Nitrogen 11 mg/dL (7-20) Creatinine 1.1 mg/dL (0.6-1.0) Estimated GFR (Cockcroft-Gault) 47.1 BUN/Creatinine Ratio 10 (6-20) Glucose Level 109 mg/dL (70-99) Calcium Level 8.2 mg/dL (8.5-10.1) Total Bilirubin 0.3 mg/dL (0.2-1.0) Aspartate Amino Transf (AST/SGOT) 16 U/L (15-37) Alanine Aminotransferase (ALT/SGPT) < 6 U/L (14-59) Alkaline Phosphatase 74 U/L (46-116) Total Protein 5.2 g/dL (6.4-8.2) Albumin 2.3 g/dL (3.4-5.0) Albumin/Globulin Ratio 0.8 (1.0-1.7) Micro URINE CULTURE RES 1 Preliminary Comment No growth after 18-24 hours. URINE CULTURE RES 1 Preliminary Comment No growth after 18-24 hours. Objective Assessment Fever, likely reactive, better s/p intramedullary nailing of right femur fracture, 03/06 s/p fall PCN allergy-hives Anemia s/p PRBCs 03/07 Osteoporosis Plan Plan of Care Continue to hold antibiotics Urine and blood cultures NGTD and surgical site w/o signs of infection Await Theodore removal D/w daughter Call with questions Patient seen and examined. Chart reviewed in detail. Case discussed with MERCHANDISE APPRAISER. Agree with above BROOKS CARMEN APRN Mar 08, 2017 13:50 FORD WEINER MD Mar 08, 2017 17:45
[2017-03-08 15:00] VITALS: BP 136/61
[2017-03-08] MEDS ORDERED: WARFARIN 3 MG TABLET. PO ONE (16:00)
[2017-03-08] MEDS ORDERED: MAGNESIUM CITRATE 296 ML SOLUTION. PO ONE (17:30)
[2017-03-08 19:00] VITALS: BP 170/78
[2017-03-08 23:54] VITALS: BP 152/86
[2017-03-08] MEDS: fentaNYL PF VIAL 100 MCG/2 ML VIAL IV PRN (23:57)
[2017-03-09] MEDS: HYDROcodone/APAP 7.5/325MG 1 TAB TABLET PO PRN ×3 (03:11→21:36)
[2017-03-09 03:43] VITALS: BP 187/82
[2017-03-09 05:01] LABS: HEMATOCRIT 28.1 % (36.0-47.0); HEMOGLOBIN 9.7 g/dL (12.0-15.5); RED BLOOD COUNT 3.18 x10^6/uL (3.50-5.40); WHITE BLOOD COUNT 9.4 x10^3/uL (4.0-11.0)
[2017-03-09 05:52] LABS: CALCIUM 8.6 mg/dL (8.5-10.1); GFR 52.6
[2017-03-09 06:03] LABS: INR 2.6 (0.8-1.1); PROTHROMBIN TIME PATIENT 25.9 SEC (11.7-14.0)
[2017-03-09 07:00] VITALS: BP 173/79
[2017-03-09] MEDS: SENNOSIDES/DOCUSATE 8.6/50MG TABLET. PO SCH (09:00)
[2017-03-09] MEDS: GABAPENTIN 100 MG CAPSULE. PO SCH ×2 (09:12→21:36)
[2017-03-09] MEDS: OXYBUTYNIN CHLORIDE 5 MG TABLET PO SCH ×2 (09:12→21:36)
[2017-03-09] MEDS: MEMANTINE 5 MG TABLET. PO SCH ×2 (09:12→21:36)
[2017-03-09] MEDS: LISINOPRIL 10 MG TABLET PO SCH (09:13)
[2017-03-09] MEDS: DICLOFENAC SODIUM 1% TOPICAL GEL 100GM TUBE. TP SCH ×2 (09:14→21:37)
[2017-03-09] MEDS: TRIAMCINOLONE ACETONIDE 0.1% TOPICAL CREAM 15GM TUBE. TP SCH (09:14)
[2017-03-09] MEDS: CLOBETASOL EMOLLIENT 0.05% TOPICAL CREAM 15GM TUBE. TP SCH ×2 (09:14→21:37)
--- NOTE | 2017-03-09 10:48 | PN ---
DATE: SUBJECTIVE: The patient is sitting comfortably in her chair, eating her lunch. She apparently had a shower, worked with physical therapy and doing generally well. She received 2 units of packed RBCs and her H and H is 9.1 and 27.1. She continued to require oxygen. Apparently, without oxygen she saturates less than 88% on room air. OBJECTIVE: GENERAL: When I examined her this afternoon, she looked slightly pale, but no jaundice, cyanosis, or thyromegaly. No jugular venous distention. No limb edema. VITAL SIGNS: Her heart rate was 93, blood pressure was 138/62, temperature was 98.8, respiratory rate was 16, and oxygen saturation was 93% on 1 liter of oxygen. HEAD, EYES, EARS, NOSE AND THROAT: Normocephalic, atraumatic. NECK: Supple. HEART: Showed normal first and second heart sounds with no gallop, rub or murmur. CHEST: Clear to auscultation. No crepitation or rhonchi. ABDOMEN: Distended, soft, nontender. No guarding or rigidity. No organomegaly. Hernial orifices intact. Bowel sounds normal. NEUROLOGIC: She is awake, alert, responding appropriately. Cranial nerves intact. EXTREMITIES: She moves extremities without difficulty. She ambulates with a walker. Her intake over the last 24 hours was 1400, output was 750. LABORATORY DATA: Her white cell count was 9000, hemoglobin 9.1, hematocrit 27.1, MCV 90 and platelet count 250,000. Her serum sodium was 143, potassium 4.1, chloride 110, bicarbonate 26, anion gap of 7, BUN 11, creatinine 1.1. Estimated GFR was 47 mL per minute. Her glucose 109, calcium was 8.2. Total bilirubin, AST, ALT, alkaline phosphatase were normal. Total protein was 5.2, albumin 2.3. Her prothrombin time was 20.7, INR 1.9. Her urinalysis was unremarkable. There is a moderate amount of leukocyte esterase, was negative for nitrite. There was only 5-10 wbc's, ____ very few, but no bacteria. ASSESSMENT: 1. Fall with right intertrochanteric hip fracture, status post operative stabilization of the right intertrochanteric hip fracture with intramedullary nailing. 2. The patient did spike a temperature yesterday; however, she has no leukocytosis and no further episodes of fever. 3. Acute blood loss anemia, hemoglobin and hematocrit dropped down to 6.9 and 21. She did receive 2 units of packed RBCs and her hemoglobin ____ today are 9.1 and 27.1. 4. Hypertension. The patient ____ her blood pressure is much improved. PLAN: My plan is to discontinue IV fluids, discontinue Theodore catheter. Continue with physical and occupational therapy, repeat all her lab works tomorrow and check her PT/INR today to adjust the Coumadin with the aim to maintain an INR between ____ 2.5. NORIRS ODOM MD DR: RANDOLPH/beatriz JOB#: [id number] / [id number]
[2017-03-09 11:00] VITALS: BP 179/83
[2017-03-09 15:00] VITALS: BP 131/55
[2017-03-09] MEDS ORDERED: WARFARIN 2.5 MG TABLET. PO ONE (16:00)
[2017-03-09] MEDS ORDERED: WARFARIN 2 MG TABLET. PO ONE (16:00)
[2017-03-09 19:00] VITALS: BP 190/89
--- NOTE | 2017-03-09 22:51 | DS ---
DATE OF DISCHARGE: 03/09/2017 SUBJECTIVE: The patient is sitting comfortably in her recliner in no apparent distress. On questioning her, she denied any complaint. She stated that she walked to the physical therapist with a walker and denied any complaint. Her pain is well controlled. She is on Coumadin for DVT prophylaxis and her INR is within therapeutic range. She did receive 2 units of packed RBCs and her H and H stable. PHYSICAL EXAMINATION: GENERAL: When I examined her this afternoon, she looked well and was clearly in no apparent respiratory distress, pale, but no jaundice, cyanosis, or thyromegaly. No jugular venous distention. No limb edema. VITAL SIGNS: Her heart rate was 96, blood pressure 179/83, temperature was 98.8, respiratory rate was 18 and oxygen saturation was 97% on 1 liter of oxygen. HEAD, EYES, EARS, NOSE AND THROAT: Showed normocephalic, atraumatic. NECK: Supple. HEART: Showed normal first and second heart sounds. No gallop, rub or murmur. CHEST: Clear to auscultation. No crepitation or rhonchi. ABDOMEN: Distended, soft, nontender. No guarding or rigidity. No organomegaly. Hernial orifices intact. Bowel sounds normal. NEUROLOGIC: She was awake, alert, responding appropriately. Cranial nerves intact. She moves extremities without difficulty. She ambulates with a walker with standby assist. Her intake over the last 24 hours was 1700, output was 1325. LABORATORY DATA: This morning showed a white cell count of 9400, hemoglobin 9.7, hematocrit 28, MCV 88 and platelet count 279,000. Her serum sodium 140, potassium 4, chloride 105, bicarbonate 28, anion gap of 6, BUN 10, creatinine 1, estimated GFR was 53 mL per minute. Her glucose 124, calcium was 8.6. Her prothrombin time was 25.9 and INR of 2.6. Urinalysis was unremarkable. Her urine culture showed no growth in 48 hours and her blood cultures showed no growth after 48 hours. DISCHARGE MEDICATIONS: The patient will be discharged to [facility] to continue on following medications: Coumadin adjusted to maintain INR between 2-2.5, Senna-S 1 tablet once a day, oxycodone 5-10 mg every 4 hours as needed, lisinopril 10 mg once a day, polyethylene glycol 17 grams daily p.r.n. for constipation, oxybutynin 5 mg twice a day, Namenda 2.5 mg twice a day, gabapentin 100 mg twice a day, diclofenac sodium applied topically twice a day, clobetasol propionate applied topically twice a day, simethicone 80 mg every 6 hours, magnesium hydroxide 30 mL p.o. daily p.r.n. for constipation, Lidoderm patch 1 patch applied topically on for 12 hours and off for 12 hours. FINAL DISCHARGE DIAGNOSES: 1. Fall with right nondisplaced intertrochanteric hip fracture status post operative stabilization of the right intertrochanteric hip fracture with intramedullary nailing. 2. Acute blood loss anemia with hemoglobin that dropped to 6.9 and 21. She did receive 2 units of packed RBCs and her hemoglobin today is 9.7, hematocrit 28. 3. Hypertension for which she is on lisinopril. 4. The patient did spike a temperature however, so far her urine and blood cultures were both negative. PLAN: To discharge the patient to [facility] to continue the process of rehabilitation. We will continue to monitor her PT/INR to maintain INR between 2-2.5. Her INR is slightly supratherapeutic today. We will hold Coumadin today. We will check the PT/ INR tomorrow and adjust Coumadin accordingly. NORRIS ODOM MD DR: RANDOLPH/beatriz JOB#: [id number] / [id number]
[2017-03-09 23:52] VITALS: BP 152/86
[2017-03-10 03:00] VITALS: BP 144/60
[2017-03-10 05:25] LABS: INR 2.9 (0.8-1.1); PROTHROMBIN TIME PATIENT 28.4 SEC (11.7-14.0)
[2017-03-10] MEDS: HYDROcodone/APAP 7.5/325MG 1 TAB TABLET PO PRN (06:43)
[2017-03-10 07:00] VITALS: BP 165/73
[2017-03-10 08:25] VITALS: BP 165/73
[2017-03-10] MEDS: OXYBUTYNIN CHLORIDE 5 MG TABLET PO SCH (08:25)
[2017-03-10] MEDS: GABAPENTIN 100 MG CAPSULE. PO SCH (08:25)
[2017-03-10] MEDS: LISINOPRIL 10 MG TABLET PO SCH (08:25)
[2017-03-10] MEDS: TRIAMCINOLONE ACETONIDE 0.1% TOPICAL CREAM 15GM TUBE. TP SCH (08:26)
[2017-03-10] MEDS: DICLOFENAC SODIUM 1% TOPICAL GEL 100GM TUBE. TP SCH (08:26)
[2017-03-10] MEDS: CLOBETASOL EMOLLIENT 0.05% TOPICAL CREAM 15GM TUBE. TP SCH (08:26)
[2017-03-10] MEDS: SENNOSIDES/DOCUSATE 8.6/50MG TABLET. PO SCH (08:26)
[2017-03-10] MEDS: MEMANTINE 5 MG TABLET. PO SCH (08:26)
--- NOTE | 2017-03-10 09:55 | CONS ---
DATE OF CONSULTATION: 03/07/2017 REFERRING PHYSICIAN: Dr. Tyson. REASON FOR CONSULTATION: Fever. HISTORY OF PRESENT ILLNESS: This patient is an 86-year-old female with a history of osteoporosis, who initially presented to [facility] in [place] on 03/02/2017 for difficulty walking on her right leg. She had fallen about 5 days earlier. X-ray films did not show any acute changes. However, a bone scan showed abnormal uptake within the right proximal femur, though she was transferred to [facility] for further evaluation. An MRI revealed a nondisplaced intertrochanteric fracture of the right femur; mild right hip osteoarthritis and effusion. She was taken to the OR on the and underwent an operative stabilization with intramedullary nailing by Dr. Jean. Earlier of this morning, she spiked a fever ranging from 100.6-101.5. White blood cell count remains within normal limits. Urinalysis is unremarkable for infection. Blood cultures are pending. The patient is sitting in the chair, eating her dinner. She verbalized discomfort at the moment. Denies chills or sweats. Denies headache, cough or shortness of air. Denies nausea, vomiting or diarrhea. She has a Theodore in place that is scheduled to be removed tomorrow. She is anemic and is getting a blood transfusion. PAST MEDICAL HISTORY: Hypertension, chronic kidney disease, osteoporosis, osteoarthritis, urinary incontinence and dementia. PAST SURGICAL HISTORY: Operative stabilization with intramedullary nailing of right femur fracture on 03/06/2017, right wrist orthopedic surgery and vertebroplasty. ALLERGIES: PENICILLIN CAUSING A RASH AND HIVES. SOCIAL HISTORY: The patient has been living in an assisted living facility for the past year. Nonsmoker. MEDICATIONS: Reviewed on the OCT. She is currently not on any antibiotics. REVIEW OF SYSTEMS: Per HPI, otherwise all other review of systems are negative. PHYSICAL EXAMINATION: GENERAL: A pleasant female, sitting in the chair, in no apparent distress. VITAL SIGNS: Temperature is 99.1, T-max 101.5, blood pressure 106/45, heart rate 87, respiratory rate 16, pulse oximetry is 94% on 1 liter nasal cannula. Weight is 167 pounds. HEENT: Pupils equally round, reactive. Normal conjunctivae. Oral mucosa is pink and moist. LUNGS: Clear to auscultation. HEART: Normal S1 and S2. ABDOMEN: Bowel sounds are present. HEART: Normal S1 and S2. ABDOMEN: Bowel sounds are present, soft, and nontender. GENITOURINARY: She has a Theodore in place. EXTREMITIES: No gross edema or cyanosis. Right lateral hip incision is well-approximated with josefa intact. No redness or drainage noted. SKIN: Without rash. Warm to touch. NEUROLOGIC: Alert, answers simple questions appropriately. A poor historian. LABORATORY DATA: Today's WBC is 8.3, hemoglobin 6.9, hematocrit 21.0, and platelet count 165,000. Electrolytes are unremarkable. Creatinine 1.2, glucose 156, total bilirubin 0.2, AST 14, and ALT 9. Albumin 2.7. Urinalysis is unremarkable for infection. Urine and blood cultures are pending. IMAGING: Per HPI. IMPRESSION: 1. Fever, likely reactive. 2. Status post intramedullary nailing of right femur fracture, 03/06/2017. 3. Status post fall. 4. PENICILLIN ALLERGY CAUSING HIVES. 5. Acute anemia. PLAN: Hold antibiotics for now. If the patient develops another fever, I would repeat blood cultures and dose with vancomycin. Supportive care. Thank you, Dr. Tyson for asking us to participate in this patient's care. Should you have further questions or concerns, please call. The patient is seen and examined and plan of care implemented by Dr. Ford Weiner. FORD WEINER MD DR: NISHA/beatriz JOB#: [id number] / [id number]
== END 2017-03-10 10:10 | DRG 480 ==
LOC: 4 NORTH 17:00
PROVIDERS: ADMIT Internal Medicine; ATTEND Internal Medicine
PROC: 0QS606Z Reposition Right Upper Femur with Intramedullary Internal Fixation Device, Open Approach (ICD-10-PCS; principal; 2017-03-06 07:30)
PROC: 30233N1 Transfusion of Nonautologous Red Blood Cells into Peripheral Vein, Percutaneous Approach (ICD-10-PCS; 2017-03-07)
DX: S72.144A Nondisplaced intertrochanteric fracture of right femur, initial encounter for closed fracture (principal); E43 Unspecified severe protein-calorie malnutrition; D62 Acute posthemorrhagic anemia; F03.90 Unspecified dementia, unspecified severity, without behavioral disturbance, psychotic disturbance, mood disturbance, and anxiety; I12.9 Hypertensive chronic kidney disease with stage 1 through stage 4 chronic kidney disease, or unspecified chronic kidney disease; N18.9 Chronic kidney disease, unspecified; M16.11 Unilateral primary osteoarthritis, right hip; M81.0 Age-related osteoporosis without current pathological fracture; R26.2 Difficulty in walking, not elsewhere classified; W18.39XA Other fall on same level, initial encounter; Y93.89 Activity, other specified; Z88.0 Allergy status to penicillin; Z68.28 Body mass index [BMI] 28.0-28.9, adult; Y92.89 Other specified places as the place of occurrence of the external cause; Y99.8 Other external cause status
CPT/HCPCS: 36415; 71010; 73721; 74000; 76000; 80048; 80053; 81001; 85027; 85610; 86850; 86900; 86901; 86920; 87040; 87086; C1713; C1887; J0690; J2001; J2270; J2405; J2704; J2710; J3010; J3490; J7030; J7120; P9016; S0028; 97110; 97116; 97530; 97535

== ENCOUNTER → 2018-07-23 | Day surgery (SDC) | payer MEDICARE, OTHER ==
[~2018-07-23] MED LIST: CEFP100T PO; CLOB59LO TP; CYCL1DRO EACHEYE; DICL100G18 TP; GABA-585 PO; IBUP-1007 PO; LISI10TA2 PO; LOPE2CAP PO; MAGN400O7 PO; MEMA10TA PO; METH1ADH7 TP; MULT-245 PO; OXYB5TAB7 PO; OXYC1TAB22 PO; POLY17PO29 PO; PROPOFOL 20 ML IV ONE; SENN8.6T99 PO; SIME80TA14 PO; TROL90CR TP
--- NOTE | 2018-07-23 09:56 | CONS ---
DATE OF CONSULTATION: 07/23/2018 REFERRING PHYSICIAN: PAOLA Huang HISTORY OF PRESENT ILLNESS: This is an 88-year-old female, whose past medical history is significant for dysphagia, presbyesophagus, hypertension, gastric ulcers, is seen with recurrent dysphagia. She states that solids mainly stick in the substernal location. With continued issues, she requests additional evaluation. PAST MEDICAL HISTORY: Dysphagia, hypertension, gastric ulcers, arthritis. ALLERGIES: PENICILLIN, SULFA, TETRACYCLINE. MEDICATIONS: Include Restasis eyedrops, cefpodoxime, diclofenac, gabapentin, ibuprofen, lisinopril, Namenda, oxycodone and trolamine salicylate. FAMILY AND SOCIAL HISTORY: Father had heart attack, child has had breast cancer. She has had previous appendectomy. REVIEW OF SYSTEMS: Per records. PHYSICAL EXAMINATION: GENERAL: Reveals well-nourished, well-developed female who is alert, cooperative, in no acute distress. VITAL SIGNS: Pulse 85, respirations 20. HEENT: Normocephalic and atraumatic. Pupils and extraocular muscles are not tested. Sclerae anicteric. NECK: Supple. LUNGS: Clear. CARDIOVASCULAR: Reveals S1, S2, without S3, S4 or appreciable murmur. ABDOMEN: Soft abdomen, normal bowel sounds without appreciable hepatosplenomegaly. EXTREMITIES: Reveals no cyanosis, clubbing, edema. IMPRESSION: Dysphagia, etiology is to be determined. Differential includes Schatzki's ring, presbyesophagus, malignancy, achalasia, eosinophilic esophagitis and/or Delgado's. Risks and benefits of procedure including risk of hemorrhage and perforation during the operation was discussed. The patient is willing to proceed at this time. BUFFY SRINIVASAN MD DR: SELWYN/beatriz JOB#: [id number] / [id number]
[2018-07-23 10:05] VITALS: BP 141/61
== END | disposition home or self-care (01) ==
LOC: ENDOS 08:29
PROVIDERS: ATTEND Internal Medicine Gastroenterology
DX: K22.2 Esophageal obstruction (principal); K44.9 Diaphragmatic hernia without obstruction or gangrene; I10 Essential (primary) hypertension; M19.90 Unspecified osteoarthritis, unspecified site; Z88.0 Allergy status to penicillin; Z88.2 Allergy status to sulfonamides; Z88.1 Allergy status to other antibiotic agents; Z79.899 Other long term (current) drug therapy; Z82.49 Family history of ischemic heart disease and other diseases of the circulatory system; Z90.49 Acquired absence of other specified parts of digestive tract
CPT/HCPCS: 43235; 43450; J2704